=== PATIENT | female | born 1980 | race Hispanic/Latino ===

== ENCOUNTER 2017-07-07 20:27 | Emergency (ER) | payer MEDICAID ==
[2017-07-07 21:18] LABS: APPEARANCE,URINE Clear (CLEAR); BILIRUBIN,URINE Negative (NEGATIVE); COLOR,URINE Yellow (YELLOW); GLUCOSE, URINE (UA) Negative (NEGATIVE); KETONES,URINE Negative (NEGATIVE); LEUKOCYTE ESTERASE ,URINE Negative (NEGATIVE); NITRATE,URINE Negative (NEGATIVE); OCCULT BLOOD,URINE Trace (NEGATIVE); PH,URINE 6.5 (5.0-8.0); PROTEIN,URINE Negative (NEGATIVE); UROBILINOGEN,URINE 0.2 mg/dL (0.2-1.0)
[2017-07-07 21:32] LABS: BACTERIA,URINE None Seen /HPF (None Seen); RBC,URINE None Seen /HPF (0-1); SQUAMOUS EPITHELIAL CELL,UR None Seen /LPF (0-2); WBC,URINE None Seen /HPF (0-1)
== END 2017-07-07 21:38 | disposition home or self-care (01) ==
LOC: EDH 20:27
DX: O26.892 Other specified pregnancy related conditions, second trimester (principal); M54.5 Low back pain; Z3A.20 20 weeks gestation of pregnancy
CPT/HCPCS: 81001

== ENCOUNTER 2017-09-15 22:46 | Inpatient (IN) | payer MEDICAID ==
[~2017-09-15] VITALS: Ht 165.1 cm; Wt 69.9 kg
[2017-09-16] VITALS: BP 120/78
[2017-09-16] MEDS ORDERED: CALCIUM GLUCONATE 1 GM/10 ML VIAL IV PRN
[2017-09-16] MEDS ORDERED: MAGNESIUM 4GM PREMIX 100ML 100 ML IV SCH
[2017-09-16] MEDS ORDERED: CELESTONE SOLUSPAN 6 MG/ML 5ML VIAL ONE (00:12)
[2017-09-16] MEDS: LACTATED RINGERS 1000ML 1,000 ML IV PRN ×2 (00:15→19:27)
[2017-09-16] MEDS: AMPICILLIN 2GM+NS 100ML 100 ML IV SCH ×4 (00:27→18:29)
[2017-09-16] MEDS: MAGNESIUM SULFATE 1,000 ML IV PRN ×2 (00:45→19:27)
[2017-09-16 00:50] LABS: HEMATOCRIT 34.8 % (36-48); MEAN CORPUSCULAR HEMOGLOBIN 31.3 pg (27.0-33.0); MEAN CORPUSCULAR HGB CONC 34.1 g/dL (32.0-36.0); MEAN CORPUSCULAR VOLUME 91.8 fL (79-99); PLATELET COUNT (AUTO) 260 K/uL (130-400); RED BLOOD CELL COUNT(AUTO) 3.79 MIL/uL (4.00-5.50); RED CELL DISTRIBUTION WIDTH 15.3 % (11.0-15.5); WHITE BLOOD COUNT (AUTO) 12.4 K/uL (4.8-10.8)
[2017-09-16 00:51] LABS: APPEARANCE,URINE Clear (CLEAR); BILIRUBIN,URINE Negative (NEGATIVE); COLOR,URINE Yellow (YELLOW); GLUCOSE, URINE (UA) Negative (NEGATIVE); KETONES,URINE Negative (NEGATIVE); LEUKOCYTE ESTERASE ,URINE Trace (NEGATIVE); NITRATE,URINE Negative (NEGATIVE); OCCULT BLOOD,URINE Negative (NEGATIVE); PH,URINE 7.5 (5.0-8.0); PROTEIN,URINE Negative (NEGATIVE); UROBILINOGEN,URINE 0.2 mg/dL (0.2-1.0)
[2017-09-16 01:14] LABS: BACTERIA,URINE None Seen /HPF (None Seen); RBC,URINE None Seen /HPF (0-1); SQUAMOUS EPITHELIAL CELL,UR Rare /HPF (0-2); WBC,URINE 0-1 /HPF (0-1)
[2017-09-16 02:14] LABS: AMPHET/METH SCREEN,URINE NEGATIVE (NEGATIVE); BARBITURATE SCREEN, URINE NEGATIVE (NEGATIVE); BENZODIAZEPINES SCREEN,URINE NEGATIVE (NEGATIVE); CANNABINOID SCREEN,URINE NEGATIVE (NEGATIVE); COCAINE SCREEN,URINE NEGATIVE (NEGATIVE); OPIATE SCREEN,URINE NEGATIVE (NEGATIVE); PHENCYCLIDINE SCREEN,URINE NEGATIVE (NEGATIVE)
[2017-09-16] MEDS ORDERED: HYDR250V8 IM (05:53)
[2017-09-16] MEDS ORDERED: PREN1TAB89 PO (05:53)
[2017-09-16] MEDS ORDERED: PROMETHAZINE HCL 25 MG/ML 1ML AMPULE IM PRN (12:30)
[2017-09-16] MEDS ORDERED: PROMETHAZINE HCL 25 MG/ML 1ML AMPULE IM ONE (12:58)
[2017-09-16] MEDS ORDERED: ACETAMINOPHEN 325 MG TAB PO SCH (13:15)
[2017-09-16] MEDS ORDERED: ACETAMINOPHEN 325 MG TAB ONE (13:21)
[2017-09-17] MEDS ORDERED: CELESTONE SOLUSPAN 6 MG/ML 5ML VIAL ONE (00:05)
[2017-09-17] MEDS: AMPICILLIN 2GM+NS 100ML 100 ML IV SCH ×2 (00:14→05:50)
[2017-09-17 10:22] LABS: HEPATITIS Bs ANTIGEN SCREEN P Negative (Negative)
[2017-09-17] MEDS: LACTATED RINGERS 1000ML 1,000 ML IV PRN ×2 (16:00→23:53)
== END 2017-09-18 12:04 | disposition home or self-care (01) | DRG 563 ==
LOC: EDH 22:46 → OBSVTOIN 22:47 → LDH 22:47 → WSH 09-16 19:20
PROVIDERS: ADMIT Obstetrics & Gynecology; ATTEND Obstetrics & Gynecology
DX: O60.03 Preterm labor without delivery, third trimester (principal); Z3A.29 29 weeks gestation of pregnancy
CPT/HCPCS: 36415; 76805; 80305; 81001; 83735; 85027; 86592; 86850; 86900; 86901; 87340; A4344; G0378; J0290; J0702; J2550; J3475; J7120

== ENCOUNTER 2017-11-25 08:37 | Inpatient (IN) | payer MEDICAID ==
[~2017-11-25] VITALS: Ht 165.1 cm; Wt 72.1 kg
[~2017-11-25 08:37] MED LIST: HYDR250V8 IM; PREN1TAB89 PO
[2017-11-25] MEDS ORDERED: LACTATED RINGERS 1000ML 1,000 ML IV PRN (09:17)
[2017-11-25 09:24] LABS: HEMATOCRIT 40.2 % (36-48); MEAN CORPUSCULAR HGB CONC 34.4 g/dL (32.0-36.0); MEAN CORPUSCULAR VOLUME 92.8 fL (79-99); NUCLEATED RED BLOOD CELLS 0.1 % (0.0-0.19); PLATELET COUNT (AUTO) 233 K/uL (130-400); RED BLOOD CELL COUNT(AUTO) 4.33 MIL/uL (4.00-5.50); RED CELL DISTRIBUTION WIDTH 13.3 % (11.0-15.5)
[2017-11-25] MEDS ORDERED: OXYTOCIN 10 USP UNITS/ML 20 UNIT in LACTATED RINGERS 1000ML 1,000 ML IV SCH (10:45)
[2017-11-25] MEDS ORDERED: LACTATED RINGERS 1000ML 1,000 ML IV ONE ×2 (10:47→14:32)
[2017-11-25] MEDS ORDERED: OXYTOCIN 10 USP UNITS/ML ONE ×3 (10:47→14:32)
[2017-11-25] MEDS ORDERED: CEFAZOLIN SODIUM 1 GM VIAL ONE (13:08)
[2017-11-25 13:12] LABS: AMPHET/METH SCREEN,URINE NEGATIVE (NEGATIVE); BARBITURATE SCREEN, URINE NEGATIVE (NEGATIVE); BENZODIAZEPINES SCREEN,URINE NEGATIVE (NEGATIVE); CANNABINOID SCREEN,URINE NEGATIVE (NEGATIVE); COCAINE SCREEN,URINE NEGATIVE (NEGATIVE); OPIATE SCREEN,URINE NEGATIVE (NEGATIVE); PHENCYCLIDINE SCREEN,URINE NEGATIVE (NEGATIVE)
[2017-11-25] MEDS ORDERED: LACTATED RINGERS 1000ML 1,000 ML IV SCH (13:15)
[2017-11-25] MEDS ORDERED: CEFAZOLIN SODIUM 1 GM VIAL IVP PRN (13:15)
[2017-11-25] MEDS ORDERED: FENTANYL CITRATE PF 50 MCG/1 ML 2ML VIAL ONE (13:23)
[2017-11-25] MEDS: PROMETHAZINE HCL 25 MG/ML 1ML AMPULE IM SCH (14:00)
[2017-11-25] MEDS ORDERED: MEPERIDINE-PF 50 MG/ML SYG IVP ONE (14:00)
[2017-11-25] MEDS ORDERED: PHENYLEPHRINE HCL 10 MG/ML 1ML VIAL IV ONE (14:08)
[2017-11-25] MEDS ORDERED: ONDANSETRON HCL 4 MG/2 ML VIAL ONE ×2 (14:08→16:12)
[2017-11-25 15:50] VITALS: BP 120/75
[2017-11-25] MEDS ORDERED: OXYTOCIN-LR 20 UNITS/1000 ML 1,000 ML IV PRN (15:56)
[2017-11-25] MEDS ORDERED: SODIUM CHLORIDE 0.9% 1000ML 1,000 ML IV SCH (15:56)
[2017-11-25] MEDS ORDERED: SODIUM CHLORIDE 0.9% 10 ML VIAL IVP PRN (16:00)
[2017-11-25] MEDS ORDERED: PROMETHAZINE HCL 25 MG/ML 1ML AMPULE IM PRN ×2 (16:00→18:15)
[2017-11-25] MEDS ORDERED: DiphenhydrAMINE HCL 50 MG/ML VIAL IVP PRN (18:15)
[2017-11-25] MEDS ORDERED: EPHEDRINE SULFATE 50 MG/ML AMPULE IVP PRN (18:15)
[2017-11-25] MEDS ORDERED: HYDROCODONE/ACETAMINOPHEN 5/325 MG TAB PO PRN (18:15)
[2017-11-25] MEDS ORDERED: ONDANSETRON HCL 4 MG/2 ML VIAL IVP PRN ×2 (18:15)
[2017-11-25] MEDS ORDERED: ONDANSETRON HCL 4 MG/2 ML 8 MG in SODIUM CHLORIDE 0.9% 50 ML IVP NR (18:15)
[2017-11-25] MEDS ORDERED: NALOXONE HCL 0.4 MG/1 ML ML IVP PRN ×2 (18:15)
[2017-11-25] MEDS ORDERED: METOCLOPRAMIDE 10 MG/2 ML VIAL IVP PRN (18:15)
[2017-11-25] MEDS ORDERED: MORPHINE SULFATE 2 MG/ML 1ML SYG IVP PRN (18:15)
[2017-11-25] MEDS: CALDOLOR 800MG+NS 250ML 250 ML IV PRN (18:26)
[2017-11-25 19:25] VITALS: BP 127/82
[2017-11-25] MEDS ORDERED: INSULIN HUMULIN R 100 UNIT/ML 3ML SQ SCH (21:00)
[2017-11-26 00:21] VITALS: BP 103/55
[2017-11-26] MEDS: CALDOLOR 800MG+NS 250ML 250 ML IV PRN (01:49)
[2017-11-26] MEDS: HYDROCODONE/ACETAMINOPHEN 5/325 MG TAB PO PRN ×2 (03:21→23:37)
[2017-11-26 04:33] VITALS: BP 99/54
[2017-11-26 05:28] LABS: HEMATOCRIT 35.6 % (36-48); MEAN CORPUSCULAR HGB CONC 34.4 g/dL (32.0-36.0); MEAN CORPUSCULAR VOLUME 92.8 fL (79-99); PLATELET COUNT (AUTO) 202 K/uL (130-400); RED BLOOD CELL COUNT(AUTO) 3.84 MIL/uL (4.00-5.50); RED CELL DISTRIBUTION WIDTH 13.2 % (11.0-15.5); WHITE BLOOD COUNT (AUTO) 16.4 K/uL (4.8-10.8)
[2017-11-26 06:16] LABS: HEPATITIS Bs ANTIGEN SCREEN P Negative (Negative)
[2017-11-26 07:20] VITALS: BP 97/58
[2017-11-26] MEDS ORDERED: ACETAMINOPHEN EXTRA STRENGTH 500 MG TABLET PO PRN (08:00)
[2017-11-26] MEDS ORDERED: BISACODYL 10 MG SUPP.RECT RC PRN (08:00)
[2017-11-26] MEDS ORDERED: DIPH,PERTUSS(ACELL),TET VAC/PF 0.5 ML VIAL IM SCH (08:00)
[2017-11-26] MEDS ORDERED: LANOLIN 30GM OINTMENT TP PRN (08:00)
[2017-11-26] MEDS ORDERED: ACETAMINOPHEN-CODEINE 300/30MG TAB PO PRN (08:00)
[2017-11-26] MEDS: SIMETHICONE 80 MG TAB.CHEW PO PRN ×2 (08:49→21:58)
[2017-11-26] MEDS: DOCUSATE SODIUM 100 MG CAP PO SCH ×2 (08:49→21:58)
[2017-11-26 11:29] VITALS: BP 92/66
[2017-11-26] MEDS: PROMETHAZINE HCL 25 MG/ML 1ML AMPULE IM SCH (14:00)
[2017-11-26 15:27] VITALS: BP 101/58
[2017-11-26 19:27] VITALS: BP 98/64
[2017-11-26] MEDS: IBUPROFEN 600 MG TABLET PO PRN (21:59)
[2017-11-27 07:27] VITALS: BP 97/61
[2017-11-27] MEDS: DOCUSATE SODIUM 100 MG CAP PO SCH (09:15)
[2017-11-27] MEDS: SIMETHICONE 80 MG TAB.CHEW PO PRN (09:15)
[2017-11-27] MEDS: IBUPROFEN 600 MG TABLET PO PRN (09:16)
[2017-11-27 11:28] VITALS: BP 114/73
== END 2017-11-27 13:25 | disposition home or self-care (01) | DRG 540 ==
LOC: OBSVTOIN 08:37 → LDH 08:37 → WSH 15:50
PROVIDERS: ADMIT Obstetrics & Gynecology; ATTEND Obstetrics & Gynecology
PROC: 10D00Z1 Extraction of Products of Conception, Low, Open Approach (ICD-10-PCS; principal; 2017-11-25 13:20)
PROC: 3E0234Z Introduction of Serum, Toxoid and Vaccine into Muscle, Percutaneous Approach (ICD-10-PCS; 2017-11-26)
DX: O76 Abnormality in fetal heart rate and rhythm complicating labor and delivery (principal); O24.420 Gestational diabetes mellitus in childbirth, diet controlled; Z37.0 Single live birth; Z3A.39 39 weeks gestation of pregnancy; Z23 Encounter for immunization
CPT/HCPCS: 36415; 59510; 76815; 80305; 82948; 85027; 86592; 86850; 86900; 86901; 87340; 90715; A4344; A4450; A4606; J0690; J1741; J2370; J2405; J2590; J3010; J7120

== ENCOUNTER 2024-11-12 20:12 | Emergency (ER) | payer BC, MEDICAID ==
[~2024-11-12] VITALS: Ht 165.1 cm; Wt 72.6 kg
[2024-11-12 21:06] LABS: BASOPHILS # (AUTO) 0.07 K/uL (0.00-0.20); BASOPHILS % (AUTO) 0.9 % (0.0-5.0); EOSINOPHILS # (AUTO) 0.11 K/uL (0.00-0.70); EOSINOPHILS % (AUTO) 1.4 % (0.0-8.0); HEMATOCRIT 32.3 % (36-48); IMMATURE GRANULOCYTE ABSOLUTE 0.01 K/uL (0-1); LYMPHOCYTES # (AUTO) 2.7 K/uL (1.0-4.8); LYMPHOCYTES % (AUTO) 33.9 % (21.0-51.0); MEAN CORPUSCULAR HEMOGLOBIN 24.9 pg (27.0-33.0); MEAN CORPUSCULAR HGB CONC 31.3 g/dL (32.0-36.0); MEAN CORPUSCULAR VOLUME 79.6 fL (79-99); MONOCYTES # (AUTO) 0.4 K/uL (0.1-1.0); MONOCYTES % (AUTO) 5.6 % (3.0-13.0); NEUTROPHILS # (AUTO) 4.6 K/uL (1.8-7.7); NEUTROPHILS % (AUTO) 58.1 % (40.0-77.0); PLATELET COUNT (AUTO) 367 K/uL (130-400); RED BLOOD CELL COUNT(AUTO) 4.06 MIL/uL (4.00-5.50); RED CELL DISTRIBUTION WIDTH 15.7 % (11.0-15.5); WHITE BLOOD COUNT (AUTO) 7.9 K/uL (4.8-10.8)
[2024-11-12 21:29] LABS: CREATININE 0.7 mg/dL (0.5-1.0); POTASSIUM 3.4 mmol/L (3.5-5.1)
--- NOTE | 2024-11-12 21:34 | ERN ---
General Chief Complaint: Flank Pain Stated Complaint: LLQ PAIN LEFT FLANK PAIN Time Seen by MD: 20:23 Time Seen by Midlevel: 20:23 Source: patient History of Present Illness Initial Comments 44-year-old female who presents to the emergency department due to pelvic pain and back pain onset three weeks. Patient reports back pain has been occurring off and on ever since her . Pelvic pain has been occurring off and on for the past three weeks. Patient denies any nausea, vomiting, diarrhea, constipation, dysuria or further associated symptoms. Denies significant past medical history. Allergies: Coded Allergies: No Known Allergies (Unverified Allergy, Unknown, 09/15/17) Home Meds Active Scripts Meloxicam (Meloxicam) 15 Mg Tablet, 15 MG PO DAILY PRN for PAIN for 30 Days, #30 TAB Prov:JIN MENON DO 11/13/24 Acetaminophen with Codeine (Acetaminophen-Cod #3 Tablet) 300 Mg-30 Mg Tablet, 1 TAB PO Q6HPRN PRN for pain for 7 Days, #28 TAB 0 Refills Prov:JIN MENON DO 11/13/24 Reported Medications Hydroxyprogesterone Caproate ([place]) 250 Mg/1 Ml Vial, 250 MG IM 1XWK, VIAL 09/16/17 Vit W-Ca,Fe,FA(<1 mg) ( Vitamins) 1 Each Tablet, 1 EACH PO DAILY, TAB 09/16/17 Past Medical History Past Medical History: No Pertinent History Past Surgical History: ROS Dictation Constitutional: Negative for fever,chills, and weight loss Eyes: Negative for injury, pain,redness, and discharge ENT: Negative for injury,pain or swelling Cardiovascular: Negative for chest pain, palpitations, and edema Respiratory: Negative for shortness of breath, cough, and wheezing, Abdomen/GI: Positive for pelvic pain Negative for abdominal pain, nausea, vomiting, diarrhea, and constipation Back: Positive for back pain Negative for injury and pain : Negative for painful urination, bleeding or discharge MS/Extremity: Negative for injury and deformity Skin: Negative for rash, and discoloration Neuro: Negative for headache, weakness, numbness, tingling, and seizure Psych: Negative for suicide ideation, homicidal ideation, and hallucinations Physical Exam Physical Exam Dictation General: awake, alert, no acute distress Head/Face: Normocephalic, atraumatic Eyes: PERRL, EOMI, normal conjunctiva ENT: oral cavity clear, oral mucosa moist Neck: Supple, normal range of motion Cardiovascular: RRR, normal S1/S2 Respiratory: CTAB, no respiratory distress, no rales or wheezes Abdomen: Soft, mild left lower pelvic tenderness, non-distended, no guarding or rebound. Skin: Warm, dry, normal turgor, no rash MS/Extremity: Pulses equal, no cyanosis, neurovascular intact, FROM Neuro: COAx4, GCS 15, strength 5/5, CN 2-12 intact, normal cerebellar exam, normal gait Psych: Normal behavior, mood, and affect normal Results Laboratory and Microbiology Lab and Micro Result Laboratory Tests Test 11/12/24 20:59 11/12/24 21:45 White Blood Count 7.9 K/uL (4.8-10.8) Red Blood Count 4.06 MIL/uL (4.00-5.50) Hemoglobin 10.1 g/dL (12.0-16.0) L Hematocrit 32.3 % (36-48) L Mean Corpuscular Volume 79.6 fL (79-99) Mean Corpuscular Hemoglobin 24.9 pg (27.0-33.0) L Mean Corpuscular Hemoglobin Concent 31.3 g/dL (32.0-36.0) L Red Cell Distribution Width 15.7 % (11.0-15.5) H Platelet Count 367 K/uL (130-400) Mean Platelet Volume 11.5 fL (7.5-10.5) H Immature Granulocyte % (Auto) 0.1 % (0-1) Neutrophils (%) (Auto) 58.1 % (40.0-77.0) Lymphocytes (%) (Auto) 33.9 % (21.0-51.0) Monocytes (%) (Auto) 5.6 % (3.0-13.0) Eosinophils (%) (Auto) 1.4 % (0.0-8.0) Basophils (%) (Auto) 0.9 % (0.0-5.0) Neutrophils # (Auto) 4.6 K/uL (1.8-7.7) Lymphocytes # (Auto) 2.7 K/uL (1.0-4.8) Monocytes # (Auto) 0.4 K/uL (0.1-1.0) Eosinophils # (Auto) 0.11 K/uL (0.00-0.70) Basophils # (Auto) 0.07 K/uL (0.00-0.20) Absolute Immature Granulocyte (auto 0.01 K/uL (0-1) Nucleated Red Blood Cells 0.0 % (0.0-0.19) Red Blood Cell Morphology See comments Sodium Level 140 mmol/L (136-145) Potassium Level 3.4 mmol/L (3.5-5.1) L Chloride Level 105 mmol/L (101-111) Carbon Dioxide Level 27 mmol/L (21-32) Blood Urea Nitrogen 9 mg/dL (7-18) Creatinine 0.7 mg/dL (0.5-1.0) Glomerular Filtration Rate Calc 109 mL/min (>90) Random Glucose 87 mg/dL (70-105) Total Calcium 9.0 mg/dL (8.5-10.1) Urine Color COLORLESS (YELLOW) Urine Appearance CLEAR (CLEAR) Urine pH 7.0 (5.0-8.0) Urine Specific [place] 1.003 (1.001-1.031) Urine Protein NEGATIVE mg/dL (NEGATIVE) Urine Glucose (UA) NEGATIVE mg/dL (NEGATIVE) Urine Ketones NEGATIVE mg/dL (NEGATIVE) Urine Occult Blood SMALL (NEGATIVE) H Urine Nitrate NEGATIVE (NEGATIVE) Urine Bilirubin NEGATIVE mg/dL (NEGATIVE) Urine Urobilinogen 0.2 mg/dL (0.2-1.0) Urine Leukocyte Esterase NEGATIVE Demetrio/uL Urine RBC 0-1 /HPF (0-1) Urine WBC 0-1 /HPF (0-1) Urine Squamous Epithelial Cells RARE /HPF (0-2) Urine Bacteria None /HPF (None Seen) Urine HCG, Qualitative NEGATIVE (NEGATIVE) MDM CC: back pain, lower abd pain Historian: patient Comorbidities: none Limitations by social determinates of health: none Ddx: back pain, surgical pathology, kidney infection VSS Labs (interpreted by me): CBC normocytic anemia 10.1, chemistry normal, UA normal. US pelvis (interpreted by me): unremarkable other than nabothian cysts CT abd/pelvis (independently interpreted by me): no obvious acute pathology, some stranding lower abd wall. No surgical pathogloy. No life threats, no surgical pathology. WIll DC to PCP f/u. ED Course Orders Procedure Category Date Status Time Cbc With Differential LAB 11/12/24 Complete 20:23 Basic Metabolic Panel LAB 11/12/24 Complete 20:23 Urinalysis LAB 11/12/24 Complete W/Microscopic 20:23 ,Urine Test LAB 11/12/24 Complete 20:23 Us Pelvic Non-Ob Comp US 11/12/24 Resulted 20:52 Ct Abdomen/Pelvis CT 11/12/24 Resulted W/Contrast 22:02 Iohexol (Omnipaque) PHA 11/12/24 Complete 23:03 Current Medications Medications (Trade) Dose Ordered Sig/Agustina Route PRN Reason Start Time Stop Time Status Last Admin Dose Admin Iohexol (Omnipaque) 75 ml STK-MED ONCE IV 11/12/24 23:03 11/12/24 23:04 DC Vital Signs Date Time Temp Pulse Resp B/P (MAP) Pulse Ox O2 Delivery O2 Flow Rate FiO2 11/13/24 00:30 98.2 68 15 132/78 98 Room Air* 0 21 11/12/24 20:22 62 16 132/77 100 Room Air 0 DX & DISP Disposition: Discharge Departure Impression: Primary Impression: Musculoskeletal pain Additional Impression: Acute back pain Condition: Stable Scripts Meloxicam (Meloxicam) 15 Mg Tablet 15 MG PO DAILY PRN for PAIN for 30 Days, #30 TAB Prov: JIN MENON DO 11/13/24 Acetaminophen with Codeine (Acetaminophen-Cod #3 Tablet) 300 Mg-30 Mg Tablet 1 TAB PO Q6HPRN PRN for pain for 7 Days, #28 TAB 0 Refills Prov: JIN MENON DO 11/13/24 Additional Instructions: Your symptoms are most consistent with a musculoskeletal back pain. The ultrasound and your pelvis shows nabothian cysts which did not appear to be causing the discomfort. The CT scan of the abdomen and pelvis does not show any major abnormalities. I have prescribed meloxicam, you can take this medicine daily for pain and discomfort. I have prescribed Tylenol with codeine to use as needed for significant pain. I also recommend using creams, patches, and heating pads for supportive care. As we discussed, follow up with the primary doctor as an outpatient. You may need further studies or treatment. Referrals: SELF,REFERRAL (PCP) I performed a substantive portion of the visit. I have reviewed and personally made and approve the management plan that is documented in the notes by myself with SARAVANAN/resident. I acknowledged full responsibility for the patient's management plan. CRYSTAL KAY November 12, 2024 21:34 JIN MENON DO November 13, 2024 00:19
--- NOTE | 2024-11-12 21:34 | HMCIMG ---
US PELVIC NON-OB COMP HISTORY: Left pelvic pain COMPARISON: None FINDINGS: The uterus measures 9.1 cm in length with a 9 mm endometrial thickness. There is too small cervical nabothian cyst that measures roughly 1 cm. The ovaries are unremarkable in size and echogenicity and vascularity. There are no adnexal masses or free fluid. IMPRESSION: There are 2 small cervical nabothian cysts otherwise unremarkable study
[2024-11-12 22:34] LABS: APPEARANCE,URINE CLEAR (CLEAR); BILIRUBIN,URINE NEGATIVE (NEGATIVE); COLOR,URINE COLORLESS (YELLOW); GLUCOSE, URINE (UA) NEGATIVE (NEGATIVE); KETONES,URINE NEGATIVE (NEGATIVE); LEUKOCYTE ESTERASE ,URINE NEGATIVE Leu/uL (NEGATIVE); NITRATE,URINE NEGATIVE (NEGATIVE); OCCULT BLOOD,URINE SMALL (NEGATIVE); PROTEIN,URINE NEGATIVE (NEGATIVE); UROBILINOGEN,URINE 0.2 mg/dL (0.2-1.0)
[2024-11-12 22:36] LABS: HCG,QUALITATIVE URINE NEGATIVE (NEGATIVE)
[2024-11-12 22:40] LABS: RBC,URINE 0-1 /HPF (0-1); SQUAMOUS EPITHELIAL CELL,UR RARE /HPF (0-2); WBC,URINE 0-1 /HPF (0-1)
[2024-11-12] MEDS ORDERED: IOHEXOL-350 75 ML VIAL IV ONE (23:03)
--- NOTE | 2024-11-12 23:33 | HMCIMG ---
CT ABDOMEN/PELVIS W/CONTRAST HISTORY: Left lower abdominal pain COMPARISON: 11/25/2015 TECHNIQUE: Multiple sequential axial images of the abdomen and pelvis were obtained from the dome of the diaphragm through symphysis pubis. Patient was given 75 cc of Omnipaque through intravenous route. Oral contrast was not given. FINDINGS: No pleural effusion is seen bilaterally. There is no evidence of parenchymal disease or pulmonary nodule of the visualized lower lungs. Degenerative changes of the thoracolumbar spine are present. The heart is not enlarged. Gallstones are seen in the gallbladder. Liver measures 15 cm. There is right renal cyst measuring 2 cm. There is ventral hernia with fat content and fat stranding. Subcutaneous fat stranding is seen in the anterior pelvic wall. The liver, spleen, adrenal glands and pancreas are unremarkable. There is no evidence of hydronephrosis bilaterally. No evidence of renal stone is seen. Fecal material is seen in the colon. There are normal size retroperitoneal and mesenteric lymph nodes. No ascites is seen. No CT evidence of acute sinusitis is seen. Pelvic sidewalls are symmetric bilaterally. Bladder is well distended without wall thickening. IMPRESSION: 1. There is right renal cyst measuring 2 cm. There is ventral hernia with fat content and fat stranding. Subcutaneous fat stranding is seen in the anterior pelvic wall. CT was performed with one or more following dose reduction techniques: automated exposure control, adjustment of the mA and kv according to patient's size, or use of a iterative reconstruction technique.
[2024-11-13] MEDS ORDERED: MELO-108 PO (00:18)
[2024-11-13] MEDS ORDERED: ACET-2079 PO (00:18)
[2024-11-13 00:30] VITALS: BP 132/78; PULSE 68; RESP 15; TEMP 98.2; O2SAT 98
== END 2024-11-13 00:31 | disposition home or self-care (01) ==
LOC: EDH 20:12
DX: N28.1 Cyst of kidney, acquired (principal); K43.9 Ventral hernia without obstruction or gangrene; M54.9 Dorsalgia, unspecified; Z79.899 Other long term (current) drug therapy; Z98.890 Other specified postprocedural states
CPT/HCPCS: 99285; 74177; 76856; 80048; 85025; 81001; 81025; 36415; Q9967

== ENCOUNTER 2024-12-05 12:37 | Emergency (ER) | payer BC ==
[~2024-12-05] VITALS: Ht 165.1 cm; Wt 69.9 kg
[~2024-12-05 12:37] MED LIST changes: +ACET-2079 PO; +MELO-108 PO
[2024-12-05 13:14] LABS: RAPID GROUP A STREP negative (NEGATIVE)
[2024-12-05 13:29] LABS: INFLUENZA TYPE A Negative For Type A (NEGATIVE); INFLUENZA TYPE B Negative For Type B (NEGATIVE)
[2024-12-05 13:32] LABS: COVID19 (SARS ANTIGEN RAPID) POSITIVE FOR SARS AG (NEGATIVE)
[2024-12-05] MEDS ORDERED: ONDA-243 PO (13:43)
--- NOTE | 2024-12-05 13:44 | ERN ---
ED Note History of Present Illness Stated Complaint: COUGH, HEADACHE, SORE THROAT Chief Complaint: Flu Symptoms Time Seen by MD: 12:45 Time Seen by Midlevel: 12:46 Dictation: 44-year-old female presents to the emergency department due to reported of castellanos ving body aches, chills, sore throat and a nonproductive cough that began yesterday. She states that there is no confirmed fever associated with this. Patient denies having had contact with anybody with similar symptoms. Currently, she denies having nausea, vomiting, diarrhea or urinary symptoms. Upon initial evaluation, the patient presents in no acute respiratory distress. Allergies: Coded Allergies: No Known Allergies (Unverified Allergy, Unknown, 09/15/17) Emergency Care PREPRESS TECHNICIAN: None Home Meds Active Scripts Meloxicam (Meloxicam) 15 Mg Tablet, 15 MG PO DAILY PRN for PAIN for 30 Days, #30 TAB Prov:JIN MENON DO 11/13/24 Acetaminophen with Codeine (Acetaminophen-Cod #3 Tablet) 300 Mg-30 Mg Tablet, 1 TAB PO Q6HPRN PRN for pain for 7 Days, #28 TAB 0 Refills Prov:JIN MENON DO 11/13/24 Reported Medications Hydroxyprogesterone Caproate ([place]) 250 Mg/1 Ml Vial, 250 MG IM 1XWK, VIAL 09/16/17 Vit W-Ca,Fe,FA(<1 mg) ( Vitamins) 1 Each Tablet, 1 EACH PO DAILY, TAB 09/16/17 Past Medical History Past Medical History: No Pertinent History Surgical History: PSYCH History: no pertinent psych hx RN Note Reviewed/Agreed w/PFSH: Yes Review of System Dictation Constitutional: Chills, body aches ENT: Sore throat Respiratory: Nonproductive cough Initial Vital Sign VS Vital Signs Date Time Temp Pulse Resp B/P (MAP) Pulse Ox O2 Delivery O2 Flow Rate FiO2 12/05/24 12:41 98.4 85 18 105/65 98 0 Physical Exam Dictation General: awake, alert, NAD Head/Face: Normocephalic, atraumatic Eyes: PERRL, EOMI ENT: Oral mucosa moist, erythematous pharynx Neck: Trachea midline, supple Cardiovascular: RRR, no edema Respiratory: Symmetrical, non-labored Abdomen: Soft, non-tender, non-distended, no guarding. Skin: Warm, dry, good turgor, no rash MS/Extremity: Pulses equal, no cyanosis, neurovascular intact, FROM Neuro: COAx4, GCS 15, steady gait, Psych: Normal behavior, mood, and affect normal Results (Laboratory/Radiology) Laboratory/Radiology Laboratory Tests Test 12/05/24 12:44 Influenza Type A Antigen Negative For Type A Influenza Type B Antigen Negative For Type B SARS-CoV-2 Antigen (Rapid) POSITIVE FOR SARS AG Group A Streptococcus Rapid negative (NEGATIVE) Labs Reviewed?: Yes ED Course ED Course Orders Procedure Category Date Status Time Covid19 (Sars Antigen LAB 12/05/24 Complete Rapid) 12:40 Influenza Type A & B, LAB 12/05/24 Complete Rapid 12:40 Rapid (Group A Strep) LAB 12/05/24 Complete 12:40 Vital Signs Date Time Temp Pulse Resp B/P (MAP) Pulse Ox O2 Delivery O2 Flow Rate FiO2 12/05/24 12:41 98.4 85 18 105/65 98 0 Medical Decision Making MDM MDM: Differential diagnosis: COVID, influenza, viral pharyngitis, acute streptococ sammi pharyngitis. Rationale: Tests considered and ordered secondary to shared decision making include: Previous outside records reviewed: Old ER visits. Risk of complication and/or morbidity or mortality of patient management: None Medications-Per medication reconciliation Need for hospitalization: Patient does not meet criteria for hospitalization. Need for emergency major/minor surgery: No There are no social concerns with this patient. Prescription drug management Prescriptions will include symptomatic care Patient's prior external medical records from other ER visits were reviewed by me as indicated. Prior testing and results from previous visits were reviewed. Prior tests were taken into account with medical decision making and resource utilization, independent historian/historians were used to obtain complete medical history. I independently interpreted the test that were performed, results were reviewed by me and considered findings on radiology if ordered. Medical management and examination interpretation discussions were had by me with other qualified healthcare professionals as indicated for the patient's care. DX & DISP Disposition: Discharge Departure Impression: Primary Impression: COVID-19 virus infection Condition: Stable Scripts Ondansetron (Ondansetron Odt) 4 Mg Tab.rapdis 4 MG PO Q6HPRN PRN for nausea, #16 TAB 0 Refills Prov: MEREDITH GONZALEZ 12/05/24 Referrals: STEVIE LOPEZ MD (PCP) Time of Disposition: 13:41 MEREDITH GONZALEZ Dec 05, 2024 13:44
[2024-12-05 13:50] VITALS: BP 115/62; PULSE 82; RESP 18; TEMP 98.6; O2SAT 98
== END 2024-12-05 13:52 | disposition home or self-care (01) ==
LOC: EDH 12:37
DX: U07.1 COVID-19 (principal); Z79.899 Other long term (current) drug therapy; Z98.890 Other specified postprocedural states
CPT/HCPCS: 87426; 87804; 87880; 99283

== ENCOUNTER 2025-05-21 19:41 | Emergency (ER) | payer BC ==
[~2025-05-21] VITALS: Ht 165.1 cm; Wt 70.8 kg
[2025-05-21 20:09] VITALS: BP 130/79; PULSE 79; RESP 18; TEMP 98
--- NOTE | 2025-05-21 20:13 | NUR ---
COVID, FLU AND STREP SWABS COLLECTED AND SENT
--- NOTE | 2025-05-21 20:26 | ERN ---
ED Note History of Present Illness Stated Complaint: RUNNY NOSE, SORE THROAT Chief Complaint: Flu Symptoms Time Seen by MD: 20:12 Dictation: PATIENT IS A 45-YEAR-OLD FEMALE WITH A SORE THROAT PAINFUL SWALLOWING AND BODY ACHES FOR THE LAST 5-7 DAYS. NO NAUSEA VOMITING NO FEVER NO CHILLS. SHE IS HERE WITH HER DAUGHTER WHO IS THE SAME COMPLAINTS HOWEVER HER DAUGHTERS COMPLAINTS STARTED TONIGHT. SHE HAS NOT SEEN HER PRIMARY CARE DOCTOR. NO LOSS OF TASTE OR SMELL NO DIARRHEA Allergies: Coded Allergies: No Known Allergies (Unverified Allergy, Unknown, 09/15/17) Home Meds Active Scripts Ondansetron (Ondansetron Odt) 4 Mg Tab.rapdis, 4 MG PO Q6HPRN PRN for nausea, #16 TAB 0 Refills Prov:MEREDITH GONZALEZ 12/05/24 Meloxicam (Meloxicam) 15 Mg Tablet, 15 MG PO DAILY PRN for PAIN for 30 Days, #30 TAB Prov:JIN MENON DO 11/13/24 Acetaminophen with Codeine (Acetaminophen-Cod #3 Tablet) 300 Mg-30 Mg Tablet, 1 TAB PO Q6HPRN PRN for pain for 7 Days, #28 TAB 0 Refills Prov:JIN MENON DO 11/13/24 Reported Medications Hydroxyprogesterone Caproate ([place]) 250 Mg/1 Ml Vial, 250 MG IM 1XWK, VIAL 09/16/17 Vit W-Ca,Fe,FA(<1 mg) ( Vitamins) 1 Each Tablet, 1 EACH PO DAILY, TAB 09/16/17 Past Medical History Past Medical History: No Pertinent History Surgical History: History: Not Applicable RN Note Reviewed/Agreed w/PFSH: Yes Review of System Dictation CONSTITUTIONAL: NEGATIVE EXCEPT FOR HPI CHILLS HEAD/FACE: NEGATIVE EXCEPT FOR HPI EENT: NEGATIVE EXCEPT FOR HPI SORE THROAT WITH PAINFUL SWALLOWING/MALAISE RESPIRATORY: NEGATIVE EXCEPT FOR HPI GASTROINTESTINAL/ABDOMINAL: NEGATIVE EXCEPT FOR HPI GENITOURINARY: NEGATIVE EXCEPT FOR HPI MUSCULOSKELETAL: NEGATIVE EXCEPT FOR HPI INTEGUMENTARY: NEGATIVE EXCEPT FOR HPI NEUROLOGICAL/PSYCH: NEGATIVE EXCEPT FOR HPI HEMATOLOGIC/LYMPHATIC: NEGATIVE EXCEPT FOR HPI ALL SYSTEMS NEGATIVE, EXCEPT NOTED ABOVE. 13 POINT REVIEW OF SYSTEMS ASSESSED AND ALL NEGATIVE EXCEPT FOR ABOVE. Initial Vital Sign VS Vital Signs Date Time Temp Pulse Resp B/P (MAP) Pulse Ox O2 Delivery O2 Flow Rate FiO2 05/21/25 20:09 98.1 79 18 130/79 99 Room Air Physical Exam Dictation MILD ACUTE DISTRESS, WELL DEVELOPED, NOURISHED. HEAD AND FACE: NON-TRAUMATIC. EYES: PERRL, PINK CONJUNCTIVAS, EYELID NO TRAUMA, ANTERIOR CHAMBER WITH ARCUS SENILIS. EARS: PINNAS INTACT AND NO SIGNS OF TRAUMA OR ERYTHEMA EAR CANALS CLEAR AND NO DISCHARGE TM NO ERYTHEMA NOSE: NO DISCHARGE, NO BLEEDING. OROPHARYNX: MOUTH MODERATE PHARYNGEAL ERYTHEMA, TONSILS NO EXUDATES, NO ABSCESSES NOTED, MUCOUS MEMBRANE MOIST UVULA MIDLINE, VOICE IS CLEAR NECK: SUPPLE, NON-TENDER, NO THYROMEGALY, NO MASSES, NO JVD, NO BRUITS BREAST:DEFERRED CHEST:NO TENDERNESS, NO CREPITUS, NO PARADOXICAL MOVEMENT, NO RETRACTIONS LUNGS:CLEAR, WELL-VENTILATED, SYMMETRIC, NO RALES, NO WHEEZING, NO RHONCHI, NO STRIDOR, GOOD BREATH SOUNDS BILATERALLY HEART: REGULAR RATE, REGULAR RHYTHM, NO MURMUR, NO GALLOPS VASCULAR: NO PERIPHERAL EDEMA, ABDOMEN: SOFT, POSITIVE BOWEL SOUNDS, NONDISTENDED, NO GUARDING, NONTENDER, NO REBOUND, NO MASSES NO HEPATOMEGALY, NO SPLENOMEGALY, NO SAAVEDRA'S SIGN, NO HERNIAS. RECTAL: DEFERRED GENITAL: DEFERRED NEUROLOGICAL: NORMAL SPEECH, MOTOR FUNCTION INTACT, SENSORY FUNCTION INTACT MUSCULOSKELETAL: NECK NONTENDER, FULL RANGE OF MOTION, BACK NONTENDER, FULL RANGE OF MOTION, EXTREMITIES: NONTENDER, FULL RANGE OF MOTION SKIN: COLOR PINK, DRY, NO TURGOR, NO RASH, NO LACERATIONS, NO ABRASIONS, NO CONTUSIONS. LYMPHATIC: DEFERRED Results (Laboratory/Radiology) Laboratory/Radiology Laboratory Tests Test 05/21/25 20:00 Influenza Type A Antigen Negative For Type A Influenza Type B Antigen Negative For Type B SARS-CoV-2, RNA, NAAT NEGATIVE SARS CoV-2 Group A Streptococcus Rapid negative (NEGATIVE) Labs Reviewed?: Yes ED Course ED Course Orders Procedure Category Date Status Time Covid Rna Naat LAB 05/21/25 Complete 20:12 Influenza Type A & B, LAB 05/21/25 Complete Rapid 20:12 Rapid (Group A Strep) LAB 05/21/25 Complete 20:12 Acetaminophen 500mg PHA 05/21/25 Complete Tab (Tylenol 500mg T 20:30 Current Medications Medications (Trade) Dose Ordered Sig/Agustina Route PRN Reason Start Time Stop Time Status Last Admin Dose Admin Acetaminophen (TYLenol 500MG TAB) 1,000 mg ONCE ONCE PO 05/21/25 20:30 05/21/25 20:37 DC 05/21/25 20:55 Vital Signs Date Time Temp Pulse Resp B/P (MAP) Pulse Ox O2 Delivery O2 Flow Rate FiO2 05/21/25 20:09 98.1 79 18 130/79 99 Room Air Medical Decision Making MDM MEDICAL DECISION-MAKING BASED ON SWABS FOR FLU COVID AND STREP. ALL SWABS NEGATIVE PATIENT WILL BE TREATED EMPIRICALLY FOR ACUTE PHARYNGITIS UNSPECIFIED PROVIDED AUGMENTIN WITH A IBUPROFEN SEE HER PRIMARY CARE DOCTOR FRIDAY DX & DISP Disposition: Discharge Departure Impression: Primary Impression: Acute pharyngitis, unspecified Condition: Stable Scripts Ibuprofen (Ibuprofen) 800 Mg Tablet 800 MG PO Q6H PRN for PAIN, #30 TAB Prov: MARY HUMPHREY 05/21/25 Amoxicillin/Potassium Clav (Amox Tr-K Clv 875-125 mg Tab) 875 Mg-125 Mg Tablet 1 EACH PO BID for 7 Days, #14 TAB 0 Refills Prov: MARY HUMPHREY 05/21/25 Additional Instructions: FOLLOW-UP WITH PRIMARY CARE PROVIDER IN 1 TO 2 DAYS. TAKE MEDICATIONS DIRECTED HERE IN THE EMERGENCY ROOM. OKAY TO CONTINUE HOME MEDICATIONS UNLESS OTHERWISE DISCUSSED DURING YOUR VISIT IN THE EMERGENCY ROOM TODAY. RETURN TO YOUR NEAREST EMERGENCY ROOM IF SYMPTOMS WORSEN OR IF THERE IS NO IMPROVEMENT. CALL 911 IF YOU NEED IMMEDIATE ASSISTANCE. TAKE TYLENOL OR MOTRIN [id number] NEEDED AND IF NO CONTRAINDICATIONS ARE PRESENT. INCREASE ORAL HYDRATION. A WOUND CULTURE OR URINE CULTURE WAS ORDERED HERE IN THE EMERGENCY ROOM DEPARTMENT PLEASE FOLLOW-UP WITH PRIMARY CARE PROVIDER AND ADVISE THEM TO GET REPEAT PORTS FROM OUR FACILITY. IF YOU HAD ANY SUNITA WRAP/SPLINTS THAT WERE APPLIED HERE, PLEASE DO NOT REMOVE THEM UNTIL YOU SEE YOUR PRIMARY CARE OR SPECIALTY. TAKE AUGMENTIN DIRECTED UNTIL GONE. TAKE IBUPROFEN NEEDED FOR FEVER PAIN WITH FOOD. INCREASE YOUR WATER INTAKE. SEE YOUR PRIMARY CARE DOCTOR FOR FOLLOW UP IN 1-2 DAYS. Referrals: STEVIE LOPEZ MD (PCP) Time of Disposition: 20:59 I have reviewed the case, and I agree with, Diagnosis and Plan MARY HUMPHREY May 21, 2025 20:26
[2025-05-21 20:42] LABS: RAPID GROUP A STREP negative (NEGATIVE)
[2025-05-21 20:44] LABS: SARS-CoV-2, RNA, NAAT NEGATIVE SARS CoV-2 (NEGATIVE)
[2025-05-21 20:52] LABS: INFLUENZA TYPE A Negative For Type A (NEGATIVE); INFLUENZA TYPE B Negative For Type B (NEGATIVE)
== END 2025-05-21 22:05 | disposition home or self-care (01) ==
LOC: EDH 19:41
DX: J02.9 Acute pharyngitis, unspecified (principal); Z79.899 Other long term (current) drug therapy; Z20.822 Contact with and (suspected) exposure to COVID-19
CPT/HCPCS: 87635; 87804; 87880; 99283